=== PATIENT | male | born 1990 | race African-American/Black ===

== ENCOUNTER 2017-06-08 23:31 | Emergency (ER) | payer OTHER ==
[~2017-06-08] VITALS: Ht 188 cm; Wt 108.0 kg
[~2017-06-08 23:31] MED LIST: FLONASE16 GM NS; SERTRALINE HCL; ZYRTEC1 MG/1 ML PO
[2017-06-09 00:56] VITALS: BP 142/72
== END 2017-06-09 00:58 | disposition home or self-care (01) ==
LOC: EME 23:31
PROC: 0HQEXZZ Repair Left Lower Arm Skin, External Approach (ICD-10-PCS; principal; 2017-06-09)
DX: S61.512A Laceration without foreign body of left wrist, initial encounter (principal); W26.0XXA Contact with knife, initial encounter; F17.200 Nicotine dependence, unspecified, uncomplicated
CPT/HCPCS: 99281; 99284